=== PATIENT | male | born 1985 | race Caucasian/White ===

== ENCOUNTER 2019-01-11 06:01 | Emergency (ER) | payer OTHER ==
[2019-01-11] MEDS ORDERED: HYDROmorphone 0.5 MG/0.5 ML Syringe IVPUSH ONE ×2 (06:24→07:40)
[2019-01-11] MEDS ORDERED: Ondansetron 4 MG/2 ML SDV IVPUSH ONE (06:24)
--- NOTE | 2019-01-11 06:28 | EDM.PDOC ---
<Aníbal Biswas - Last Filed: 01/11/19 08:41> ED HPI GENERAL MEDICAL PROBLEM - General Chief Complaint: Abdominal Pain Stated Complaint: ABDOMINAL PAIN Time Seen by Provider: 01/11/19 06:23 - Related Data Allergies Allergy/AdvReac Type Severity Reaction Status Date / Time No Known Allergies Allergy Verified 01/11/19 06:11 Home Meds: Home Meds Amoxicillin/Clavulanate K [Augmentin 875-125 MG] 1 tab PO BID #20 tablet [Rx] Hydrocodone/Acetaminophen [Hydrocodon-Acetaminophen 5-325] 1 - 2 each PO Q6HR PRN #20 tablet 01/11/19 [Rx] Ondansetron [Zofran ODT] 4 mg PO Q6H PRN #20 tab.dis 01/11/19 [Rx] Course - Vital Signs Last Recorded V/S: Last Vital Signs Temp 98.7 F 01/11/19 06:07 Pulse 88 01/11/19 06:07 Resp 20 01/11/19 06:07 BP 114/67 01/11/19 06:07 Pulse Ox 97 01/11/19 06:07 - Orders/Labs/Meds Labs: Laboratory Tests 01/11/19 01/11/19 Range/Units 06:30 06:30 WBC 10.71 H (4.23-9.07) K/mm3 RBC 5.14 (4.63-6.08) M/mm3 Hgb 15.9 (13.7-17.5) gm/dl Hct 46.5 (40.1-51.0) % MCV 90.5 (79.0-92.2) fl MCH 30.9 (25.7-32.2) pg MCHC 34.2 (32.2-35.5) g/dl RDW Std Deviation 47.3 H (35.1-43.9) fL Plt Count 198 (163-337) K/mm3 MPV 9.4 (9.4-12.3) fl Neut % (Auto) 77.3 H (34.0-67.9) % Lymph % (Auto) 10.1 L (21.8-53.1) % [place] % (Auto) 10.1 (5.3-12.2) % Eos % (Auto) 2.1 (0.8-7.0) Baso % (Auto) 0.2 (0.1-1.2) % Neut # (Auto) 8.29 H (1.78-5.38) K/mm3 Lymph # (Auto) 1.08 L (1.32-3.57) K/mm3 [place] # (Auto) 1.08 H (0.30-0.82) K/mm3 Eos # (Auto) 0.22 (0.04-0.54) K/mm3 Baso # (Auto) 0.02 (0.01-0.08) K/mm3 Manual Slide Review Normal smear Sodium 138 (136-145) mEq/L Potassium 4.1 (3.5-5.1) mEq/L Chloride 104 (98-107) mEq/L Carbon Dioxide 26 (21-32) mEq/L Anion Gap 12.1 (5-15) BUN 16 (7-18) mg/dL Creatinine 1.3 (0.7-1.3) mg/dL Est Cr Clr Drug Dosing TNP Estimated GFR (MDRD) > 60 (>60) mL/min BUN/Creatinine Ratio 12.3 L (14-18) Glucose 105 (74-106) mg/dL Calcium 8.5 (8.5-10.1) mg/dL Total Bilirubin 1.2 H (0.2-1.0) mg/dL AST 26 (15-37) U/L ALT 42 (16-63) U/L Alkaline Phosphatase 54 (46-116) U/L C-Reactive Protein 4.3 H* (<1.0) mg/dL Total Protein 6.5 (6.4-8.2) g/dl Albumin 3.5 (3.4-5.0) g/dl Globulin 3.0 gm/dL Albumin/Globulin Ratio 1.2 (1-2) Meds: Medications Discontinued Medications Generic Name Dose Route Start Last Admin Trade Name Freq PRN Reason Stop Dose Admin Diatrizoate Meglum/Diatrizoate Sod 90 ml 01/11/19 07:50 01/11/19 08:11 Gastrografin 37% PO 01/11/19 07:51 90 ml ONETIME ONE Administration Hydromorphone HCl 0.5 mg 01/11/19 06:24 01/11/19 06:35 Dilaudid IVPUSH 01/11/19 06:25 0.5 mg ONETIME ONE Administration Hydromorphone HCl 0.5 mg 01/11/19 07:40 01/11/19 07:44 Dilaudid IVPUSH 01/11/19 07:41 0.5 mg ONETIME ONE Administration Hydromorphone HCl 1 mg 01/11/19 08:40 01/11/19 08:54 Dilaudid IVPUSH 01/11/19 08:41 1 mg ONETIME ONE Administration Sodium Chloride 1,000 mls @ 1,000 mls/hr 01/11/19 06:30 01/11/19 06:34 Normal Saline IV 1,000 mls/hr ASDIRECTED ALFRED Administration Iopamidol 100 ml 01/11/19 07:50 01/11/19 08:11 Isovue-300 (61%) IVPUSH 01/11/19 07:51 100 ml ONETIME ONE Administration Ondansetron HCl 4 mg 01/11/19 06:24 01/11/19 06:34 Zofran IVPUSH 01/11/19 06:25 4 mg ONETIME ONE Administration Sodium Chloride 10 ml 01/11/19 07:50 01/11/19 08:11 Saline Flush FLUSH 01/11/19 07:51 10 ml ONETIME ONE Administration - Re-Assessments/Exams Free Text/Narrative Re-Assessment/Exam: 01/11/19 08:41 I am taking over for Dr Carlson. The patient's WBC was elevated at 10.71. His CRP is elevated at 4.3. His CT shows findings compatible with diverticulitis within the descending colon. 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 Small cyst within the lower left kidney which I believe is incidental. He has more pain. I gave him a total of 1.5mg more of dilaudid. I will get him on some augmentin and something for pain at home. Departure - Departure Time of Disposition: 08:45 Disposition: Home, Self-Care 01 Condition: Good Clinical Impression: Diverticulitis, Benign neoplasm of bone of pelvis - Discharge Information *PRESCRIPTION DRUG MONITORING PROGRAM REVIEWED*: No *COPY OF PRESCRIPTION DRUG MONITORING REPORT IN PATIENT KERRIE: No Prescriptions: Hydrocodone/Acetaminophen [Hydrocodon-Acetaminophen 5-325] 1 - 2 each PO Q6HR PRN #20 tablet PRN Reason: Pain Amoxicillin/Clavulanate K [Augmentin 875-125 MG] 1 tab PO BID #20 tablet Ondansetron [Zofran ODT] 4 mg PO Q6H PRN #20 tab.dis PRN Reason: Nausea\vomiting Instructions: Diverticulitis, [id number] Referrals: Rachid Rivers MD [Primary Care Provider] - Forms: ED Department Discharge Additional Instructions: Take the augmentin 2 times per day for 10 days. Take the hydrocodone every 6 hours as needed for pain. You may also take motrin or aleve for pain. Take the zofran every 6 hours as needed for nausea and vomiting. Please return if you are worse. Follow up with Dr Jack within a week. <Aníbal Carlson - Last Filed: 01/11/19 19:44> ED HPI GENERAL MEDICAL PROBLEM - General Source of Information: Reports: Patient History Limitations: Reports: No Limitations - History of Present Illness INITIAL COMMENTS - FREE TEXT/NARRATIVE: This is a 33-year-old male. Onset last night around 8 PM with left lower quadrant abdominal pain. It is progressively worsened and actually awoke him from sleep around 2 AM this morning. Since that time he's been having chills and fever and sweating and nausea but no vomiting. He has no history of any sort of bowel problems in the past and no history of diverticulitis. He denies any recent history of constipation diarrhea or blood in his stools. Due to the persistent and increasing pain he comes to the ER for evaluation. He states that walking and driving over here hitting the bumps all cause pain in his left lower quadrant. He denies any history of kidney stones. He states the pain did not start in the left flank or wrap around into the abdomen is started in the left lower quadrant and is actually going towards the center of his lower abdomen now. The patient denies any recent urinary symptoms. He has no penile discharge. Left Lower Abdomen Pain Score (Numeric/FACES): 8 Past Medical History Neurological History: Reports: Headaches, Chronic Dermatologic History: Reports: Other (See Below) Other Dermatologic History: cyst removal to back of head - Past Surgical History HEENT Surgical History: Reports: Myringotomy w Tube(s) Dermatological Surgical History: Reports: Skin Biopsy Social & Family History - Tobacco Use Smoking Status *Q: Never Smoker - Caffeine Use Caffeine Use: Reports: None - Recreational Drug Use Recreational Drug Use: No ED ROS GENERAL - Review of Systems Review Of Systems: See Below Constitutional: Reports: Chills. Denies: Fever HEENT: Reports: No Symptoms Respiratory: Denies: Shortness of Breath, Cough Cardiovascular: Denies: Chest Pain Endocrine: Reports: No Symptoms GI/Abdominal: Reports: Abdominal Pain, Nausea. Denies: Bloody Stool, Constipation, Diarrhea, Vomiting : Reports: No Symptoms Musculoskeletal: Reports: No Symptoms Skin: Reports: No Symptoms Neurological: Reports: No Symptoms Psychiatric: Reports: No Symptoms Hematologic/Lymphatic: Reports: No Symptoms ED EXAM, GI/ABD - Physical Exam Exam: See Below Exam Limited By: No Limitations General Appearance: Alert, WD/WN, No Apparent Distress Eyes: Bilateral: Normal Appearance Ears: Normal External Exam Nose: Normal Inspection Throat/Mouth: Normal Inspection, Normal Lips, Normal Voice, No Airway Compromise Head: Normocephalic Neck: Supple Respiratory/Chest: No Respiratory Distress, Lungs Clear, Normal Breath Sounds Cardiovascular: Regular Rate, Rhythm, No Murmur GI/Abdominal Exam: Soft, Guarding, Tender, Other (Bowel sounds are positive but there are very decreased and heard mostly on the right lower quadrant, he is not particularly tender on the right side however in the right lower quadrant with palpation he is referred pain in the left lower quadrant, palpation of the left lower quadrant is very tender and guarded with some mild peritoneal irritation noted, the left upper quadrant is not particularly tender either. He has no left flank tenderness and there is no left flank pain. It all started in the left lower quadrant). No: Distended Back Exam: Normal Inspection, Full Range of Motion Extremities: Normal Inspection, Normal Range of Motion Neurological: Alert, Oriented Psychiatric: Normal Affect, Normal Mood Skin Exam: Warm, Dry Course - Orders/Labs/Meds Labs: Laboratory Tests 01/11/19 01/11/19 Range/Units 06:30 06:30 WBC 10.71 H (4.23-9.07) K/mm3 RBC 5.14 (4.63-6.08) M/mm3 Hgb 15.9 (13.7-17.5) gm/dl Hct 46.5 (40.1-51.0) % MCV 90.5 (79.0-92.2) fl MCH 30.9 (25.7-32.2) pg MCHC 34.2 (32.2-35.5) g/dl RDW Std Deviation 47.3 H (35.1-43.9) fL Plt Count 198 (163-337) K/mm3 MPV 9.4 (9.4-12.3) fl Neut % (Auto) 77.3 H (34.0-67.9) % Lymph % (Auto) 10.1 L (21.8-53.1) % [place] % (Auto) 10.1 (5.3-12.2) % Eos % (Auto) 2.1 (0.8-7.0) Baso % (Auto) 0.2 (0.1-1.2) % Neut # (Auto) 8.29 H (1.78-5.38) K/mm3 Lymph # (Auto) 1.08 L (1.32-3.57) K/mm3 [place] # (Auto) 1.08 H (0.30-0.82) K/mm3 Eos # (Auto) 0.22 (0.04-0.54) K/mm3 Baso # (Auto) 0.02 (0.01-0.08) K/mm3 Manual Slide Review Normal smear Sodium 138 (136-145) mEq/L Potassium 4.1 (3.5-5.1) mEq/L Chloride 104 (98-107) mEq/L Carbon Dioxide 26 (21-32) mEq/L Anion Gap 12.1 (5-15) BUN 16 (7-18) mg/dL Creatinine 1.3 (0.7-1.3) mg/dL Est Cr Clr Drug Dosing TNP Estimated GFR (MDRD) > 60 (>60) mL/min BUN/Creatinine Ratio 12.3 L (14-18) Glucose 105 (74-106) mg/dL Calcium 8.5 (8.5-10.1) mg/dL Total Bilirubin 1.2 H (0.2-1.0) mg/dL AST 26 (15-37) U/L ALT 42 (16-63) U/L Alkaline Phosphatase 54 (46-116) U/L C-Reactive Protein 4.3 H* (<1.0) mg/dL Total Protein 6.5 (6.4-8.2) g/dl Albumin 3.5 (3.4-5.0) g/dl Globulin 3.0 gm/dL Albumin/Globulin Ratio 1.2 (1-2) - Re-Assessments/Exams Free Text/Narrative Re-Assessment/Exam: 01/11/19 06:58 Patient here was transferred to Dr. Biswas. He'll follow-up on the labs and CT scan as well as treatment and follow-up as needed.
[2019-01-11] MEDS ORDERED: Sodium Chloride 0.9% 1,000 ML IV SCH (06:30)
[2019-01-11] MEDS ORDERED: Diatrizoate Meglumine/Diatrizoate Sodium 37% 120 ML Bottle PO ONE (07:50)
[2019-01-11] MEDS ORDERED: Sodium Chloride 0.9% 10 ML Syringe FLUSH ONE (07:50)
[2019-01-11] MEDS ORDERED: Iopamidol 612 MG/ML 100 ML Bottle IVPUSH ONE (07:50)
--- NOTE | 2019-01-11 08:26 | CT ---
CT abdomen and pelvis Technique: Multiple axial sections were obtained from above the dome of the diaphragm inferiorly through the pubic symphysis. Intravenous and oral contrast was utilized. Delayed images were also obtained through the pelvis. Comparison: No prior abdominal imaging is available. Findings: Inflammatory change is identified around the descending colon. Several diverticuli are seen in this area and findings are most likely due to diverticulitis. Additional bowel wall thickening is also noted within this area. Minimal dependent atelectasis is seen posteriorly within both lung bases. Liver contains no focal abnormality. Spleen appears within normal limits. Adrenal glands show no nodule. Pancreas is within normal limits. Gallbladder contains no calcified gallstones. Kidneys show symmetric contrast enhancement. Small cyst is identified within the lower left kidney measuring 9 mm. Kidneys otherwise appear within normal limits. Aorta shows no aneurysm. No retroperitoneal adenopathy or mesenteric abnormalities are seen. No pelvic mass or adenopathy is identified. Appendix is visualized and is normal in size. Delayed images shows contrast within the distal ureters and within the bladder. Bone window settings were reviewed which shows a bony lesion within the right iliac wing which has the appearance of a benign bone tumor. Impression: 1. Findings compatible with diverticulitis within the descending colon. 2. 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 3. Small cyst within the lower left kidney which I believe is incidental. Diagnostic code #3
[2019-01-11] MEDS ORDERED: HYDROmorphone 1 MG/ML Syringe IVPUSH ONE (08:40)
== END 2019-01-11 09:49 | disposition home or self-care (01) ==
LOC: JD.ED 06:01
DX: D16.8 Benign neoplasm of pelvic bones, sacrum and coccyx (principal); K57.32 Diverticulitis of large intestine without perforation or abscess without bleeding
CPT/HCPCS: 36415; 74177; 80053; 85025; 86140; 96361; 96374; 96375; 96376; 99284; J1170; J2405; J7040; Q9963; Q9967